=== PATIENT | female | born 1975 | race Caucasian/White ===

== ENCOUNTER → 2020-12-20 11:54 | Outpatient (CLI) | payer BC, SELFPAY ==
--- NOTE | ~2020-12-20 | XR_ITS ---
EXAMINATION: XR shoulder RT min 2V DATE: 12/20/2020 12:14 INDICATION: Right shoulder pain. TECHNIQUE: 4 views of right shoulder were obtained. COMPARISON: None. FINDINGS: Bone alignment is normal. No fracture. There is mild osteoarthritis of glenohumeral joint a nd acromioclavicular joint. IMPRESSION: 1. Mild polyarticular osteoarthritis. Reviewed, dictated and finalized at location A. SLINGER
== END ==
PROVIDERS: Visit Provider Nurse Practitioner Family
DX: M19.011 Primary osteoarthritis, right shoulder (principal)
CPT/HCPCS: 73030

== ENCOUNTER → 2021-06-13 12:13 | Outpatient (CLI) | payer BC, SELFPAY ==
--- NOTE | ~2021-06-13 | XR_ITS ---
XR foot RT min 3V DATE: 06/13/2021 13:14 INDICATION: Right foot pain TECHNIQUE: 4 views COMPARISON: None FINDINGS: Mild plantar calcaneal enthesopathy without erosive change or periostitis. Minimal osteoarthritis at the first metatarsophalangeal joint. No fracture, dislocation, periosteal reaction or bone destruction. IMPRESSION: Mild plantar calcaneal enthesopathy Minimal osteophyte is at first metatarsophalangeal joint Reviewed, dictated and finalized at location B.
--- NOTE | ~2021-06-13 | XR_ITS ---
XR heel RT min 2V DATE: 06/13/2021 13:14 INDICATION: Right foot pain TECHNIQUE: Axial and lateral views of the calcaneus COMPARISON: 06/13/2021 right foot FINDINGS: There is mild plantar calcaneal enthesopathy without associated erosive change or periostit is. No fracture or bone destruction of the calcaneus is evident. IMPRESSION: Plantar calcaneal enthesopathy Reviewed, dictated and finalized at location B.
== END ==
PROVIDERS: Visit Provider Nurse Practitioner Family
DX: M79.671 Pain in right foot (principal); M77.31 Calcaneal spur, right foot
CPT/HCPCS: 73630; 73650